=== PATIENT | male | born 1970 | race Caucasian/White ===

== ENCOUNTER 2021-06-08 18:57 | Emergency (ER) | payer OTHER ==
[~2021-06-08] VITALS: Ht 177.8 cm; Wt 102.3 kg
[2021-06-08] MEDS ORDERED: VIGAMOX 0.5% 3 M3 ML OP (20:18)
[2021-06-08 20:40] VITALS: BP 148/97; PULSE 73; TEMP 98
== END 2021-06-08 20:40 | disposition home or self-care (01) ==
LOC: COL.ER 18:57
DX: H10.9 Unspecified conjunctivitis (principal); F17.210 Nicotine dependence, cigarettes, uncomplicated